=== PATIENT | female | born 1950 | race Caucasian/White ===

== ENCOUNTER 2016-09-11 04:15 | Inpatient (IN) | payer MEDICARE, BC ==
[2016-09-11] MEDS ORDERED: DILAUDID 1 MG/ML AMP ONE ×3 (04:30→06:43)
[2016-09-11] MEDS ORDERED: ONDANSETRON 4 MG VIAL ONE (04:30)
[2016-09-11] MEDS ORDERED: SODIUM CHLORIDE 0.9% 1,000 ML ONE (04:30)
[2016-09-11] MEDS ORDERED: OPTIRAY 350 100 ML VIAL HMH IV ONE (05:31)
[2016-09-11] MEDS ORDERED: SALINE FLUSH 10 ML FLUSH PRN (08:40)
[2016-09-11] MEDS ORDERED: ACETAMINOPHEN 325 MG TAB PO PRN (08:40)
[2016-09-11] MEDS ORDERED: ATROPINE 1% OP SOLN SL PRN (08:40)
[2016-09-11] MEDS ORDERED: HALOPERIDOL 5 MG/ML VIAL IV PRN (08:40)
[2016-09-11] MEDS ORDERED: DIPHENHYDRAMINE 50 MG/ML VIAL IV PRN (08:40)
[2016-09-11] MEDS ORDERED: MORPHINE 20 MG/ML CONC. PO PRN (08:40)
[2016-09-11] MEDS ORDERED: SODIUM CHLORIDE 0.9% 1,000 ML IV SCH (08:40)
[2016-09-11] MEDS ORDERED: MORPHINE 20 MG/ML CONC. SL PRN (08:40)
[2016-09-11] MEDS ORDERED: LORAZEPAM 2 MG/ML VIAL SUBQ PRN (08:40)
[2016-09-11 09:51] VITALS: BP_SYST 90; BP_SYST 92; RESP 16; TEMP 96.1
[2016-09-11] MEDS: DILAUDID 1 MG/ML AMP IV PRN ×2 (10:04→11:16)
[2016-09-11 11:16] VITALS: RESP 16
[2016-09-11] MEDS ORDERED: SALINE FLUSH 10 ML FLUSH SCH (20:00)
[2016-09-12] MEDS ORDERED: SODIUM CHLORIDE 0.9% FLUSH BAG 500 ML IV SCH (06:00)
== END 2016-09-11 13:50 | disposition expired | DRG 371 ==
LOC: ENRESERVDT → ENRESERVTM → ER 04:15 → EMR 07:54 → 3NT 09:43
PROVIDERS: ADMIT Family Medicine; ATTEND Family Medicine
DX: K65.9 Peritonitis, unspecified (principal); E43 Unspecified severe protein-calorie malnutrition; K63.1 Perforation of intestine (nontraumatic); C79.9 Secondary malignant neoplasm of unspecified site; C22.1 Intrahepatic bile duct carcinoma; K21.9 Gastro-esophageal reflux disease without esophagitis; Z92.21 Personal history of antineoplastic chemotherapy; Z92.3 Personal history of irradiation; Z51.5 Encounter for palliative care; M81.0 Age-related osteoporosis without current pathological fracture; Z87.891 Personal history of nicotine dependence; Z79.52 Long term (current) use of systemic steroids
CPT/HCPCS: 36415; 74177; 80053; 81001; 83690; 85025; 85610; 85730; 99238